=== PATIENT | female | born 1970 | race African-American/Black ===

== ENCOUNTER 2021-07-04 23:01 | Emergency (ER) | payer OTHER, SELFPAY ==
[2021-07-04 23:18] VITALS: BP 130/74; PULSE 66; RESP 16; TEMP 36.4; O2SAT 100; BMI 20.5
--- NOTE | 2021-07-04 23:20 | ED_ITS ---
HPI - General Adult General: Chief complaint: Needlestick/Injury/Exposure Stated complaint: Needle Stick Time Seen by Provider: 07/04/21 23:04 Source: patient Mode of arrival: ambulatory Limitations: no limitations History of Present Illness: 50-year-old female who is here with EMS after a needlestick injury yesterday she works at [employer] and states that there is a needles actually poking out the side of the sharps container and poked her in the left index finger. She is sent here by [place] she has no pain no complaints otherwise. Associated symptoms: Deny chest pain, dyspnea, headache(s), nausea, rash or vomiting Review of Systems Const: Denies: fever(s), chills, body aches or change in appetite Eyes: Denies: blurry vision or eye discomfort ENMT: Denies: throat pain or dental pain Card: Denies: chest pain Resp: Denies: dyspnea GI: Denies: abdominal pain, nausea, vomiting or diarrhea : Denies: dysuria Musc: Denies: neck pain or back pain Skin/Breast: Denies: rash Neuro: Denies: headache(s) Psych: Denies: depression Alen/Lymph: Denies: easy bruising All/Imm: Denies: urticaria Physical Exam Const: COMMON NORMALS: no acute distress and patient oriented x3 HENMT: COMMON NORMALS: atraumatic HEAD & SCALP: atraumatic Eye: COMMON NORMALS: Equal, round and reactive pupils present PUPIL: Yes Equal, round and reactive pupils present Neck/C-Spine: COMMON NORMALS: full ROM Chest: COMMONS NORMALS: normal inspection of the chest Resp: COMMON NORMALS: normal respiratory effort GI: INSPECTION: Yes normal to inspection Extremity: COMMON NORMALS: normal to inspection Neuro: COMMON NORMALS: patient oriented x3 Psych: COMMON NORMALS: mental status grossly normal Skin: NARRATIVE SKIN EXAM: Small puncture wound to left index finger no bleeding Course Vital Signs: Vital signs: Vital Signs Temperature 97.6 F 07/04/21 23:18 Pulse Rate 66 07/04/21 23:18 Respiratory Rate 16 07/04/21 23:18 Blood Pressure 130/74 07/04/21 23:18 Pulse Oximetry 100 07/04/21 23:18 [facility] - General Adult Medical Decision Making Patient presents with a needlestick injury we will check HIV and hepatitis Discharge Plan Discharge Patient Disposition: Home Clinical Impression: Needlestick injury accident Condition: Stable Discharge Orders: Discharge ED (Routine); Ordered 07/05/21 Ordered By: Maddy Kamara Discharge Diet: Advance as tolerated Discharge Activity: Resume usual activity Patient Instructions: Needle Stick Injuries (ED) Coding Level of Care Code ED Safety And Skill Based 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
[2021-07-05 01:15] LABS: HIV 1 & 2 Antibody Non-Reactive (Non-Reactiv); HIV 1 & 2 Antigen Non-Reactive (Non-Reactiv)
[2021-07-05 01:47] LABS: Hepatitis B Core AB, Total Non-Reactive (Nonreactive); Hepatitis B Surface AB 926.4 (11.5-1000); Hepatitis C Virus Antibody Non-Reactive (Nonreactive)
[2021-07-05 02:38] LABS: Hepatitis B Surface Antigen Non-Reactive (Nonreactive)
== END 2021-07-05 00:44 | disposition home or self-care (01) ==
PROVIDERS: Emergency Provider Emergency Medicine
DX: S61.231A Puncture wound without foreign body of left index finger without damage to nail, initial encounter (principal); W46.0XXA Contact with hypodermic needle, initial encounter; Y92.129 Unspecified place in nursing home as the place of occurrence of the external cause; Z77.21 Contact with and (suspected) exposure to potentially hazardous body fluids
CPT/HCPCS: 86705; 86706; 86709; 86803; 87340; 87806; 99282

== ENCOUNTER → 2021-08-26 11:50 | Outpatient (BNVA) | payer OTHER, SELFPAY | PROVIDERS: Visit Provider Family Medicine | DX: S61.239A Puncture wound without foreign body of unspecified finger without damage to nail, initial encounter (principal); W46.1XXA Contact with contaminated hypodermic needle, initial encounter | CPT/HCPCS: 86705; 86706; 86709; 86803; 87340; 87806 ==